=== PATIENT | female | born 1975 | race Hispanic/Latino ===

== ENCOUNTER 2025-07-05 19:00 | Emergency (ER) | payer OTHER ==
[~2025-07-05] VITALS: Ht 162.6 cm; Wt 104.3 kg
[2025-07-05 19:12] VITALS: PULSE 86; RESP 20; TEMP 97.9
[2025-07-05 19:22] LABS: BASOPHILS % 0.6 % (0.0-1.0); EOSINOPHILS % 2.8 % (0.0-6.0); LYMPHOCYTES % 19.1 % (18.0-39.1); MONOCYTES % 7.1 % (4.4-11.3); NEUTROPHILS % 70.1 % (38.7-80.0); RED CELL DISTRIBUTION WIDTH 13.4 % (11.7-14.4)
[2025-07-05] MEDS ORDERED: SODIUM CHLORIDE 0.9% 1000ML 0 ML ONE (19:26)
[2025-07-05] MEDS ORDERED: ONDANSETRON HCL INJ 2MG/ML 2ML 2 MG/ML VIAL ONE (19:26)
[2025-07-05] MEDS: ONDANSETRON HCL INJ 2MG/ML 2ML 2 MG/ML VIAL IV STA (19:29)
[2025-07-05] MEDS: SODIUM CHLORIDE 0.9% 1000ML 1,000 ML IV STA (19:30)
[2025-07-05 19:46] LABS: EST GLOMERULAR FILTRATION RATE 104.0 ML/MIN (>=60)
[2025-07-05] MEDS ORDERED: IOPAMIDOL 370 MG/ML 100 ML INFUS..BTL INJ ONE (19:51)
[2025-07-05] MEDS ORDERED: ONDANSETRON ODT4 MG PO (20:27)
[2025-07-05] MEDS ORDERED: DICYCLOMINE HCL10 MG PO (20:27)
[2025-07-05 20:51] VITALS: BP 145/83; PULSE 84; RESP 16; O2SAT 100
== END 2025-07-05 20:44 | disposition home or self-care (01) ==
LOC: ER 19:07
DX: R11.2 Nausea with vomiting, unspecified (principal); R10.30 Lower abdominal pain, unspecified; R55 Syncope and collapse
CPT/HCPCS: 36415; 74177; 80053; 82550; 83690; 84484; 85025; 93005; 99284; J2405; J7030; Q9967